=== PATIENT | female | born 1970 | race Caucasian/White ===

== ENCOUNTER 2020-09-30 13:09 | Emergency (ER) | payer BC, OTHER ==
[~2020-09-30] VITALS: Ht 157.5 cm; Wt 70.3 kg
[2020-09-30 13:10] VITALS: BP_SYST 131
--- NOTE | 2020-09-30 13:10 | NUR ---
Patient triaged and placed in waiting room. VSS and patient appears in no acute distress at this time. Accompanied by SELF, awaiting available bed, and MD notified of need for MSE.
--- NOTE | 2020-09-30 14:03 | NUR ---
BROUGHT BACK TO BED #8 AND WILL ASSUME CARE
--- NOTE | 2020-09-30 14:10 | NUR ---
Pt walked in to ER with c/o eye pain and twitching last night, resolved this morning but she still "feels funny" V/S stable, no acute distress noted.
--- NOTE | 2020-09-30 14:30 | NUR ---
ER Dr. Young at bedside examining patient.
--- NOTE | 2020-09-30 14:50 | NUR ---
Patient transported to radiology via wheelchair, accompanied by staff.
--- NOTE | 2020-09-30 16:40 | NUR ---
Patient given written and verbal discharge instructions and verbalizes understanding. ER MD discussed with patient the results and treatment provided. Patient in stable condition. ID arm band removed. No prescriptions given. Patient educated on pain management and to follow up with PMD. Pain Scale 0. Opportunity for questions provided and answered. Medication side effect fact sheet provided.
[2020-09-30 16:44] VITALS: BP_SYST 131
== END 2020-09-30 16:40 | disposition home or self-care (01) ==
LOC: SED 13:09
DX: H53.8 Other visual disturbances (principal); I10 Essential (primary) hypertension
CPT/HCPCS: 70450-TC; 76376; 99284